=== PATIENT | female | born 1990 ===

== ENCOUNTER 2018-06-27 20:59 | Emergency (ER) | payer SELFPAY ==
[2018-06-27 21:24] VITALS: O2SAT 100
[2018-06-27] MEDS ORDERED: Sodium Chloride 0.9% 1,000 ML IV STA (21:47)
--- NOTE | 2018-06-27 22:33 | ED PDOC ---
HPI: Female Pain Time Seen by Provider: 06/27/18 21:27 Chief Complaint (Nursing): Female Genitourinary Chief Complaint (Provider): Female Genitourinary History Per: Patient History/Exam Limitations: no limitations Onset/Duration Of Symptoms: Days (1x) Current Symptoms Are (Timing): Still Present Severity: Moderate Quality Of Discomfort: Cramping Associated Symptoms: Other (vaginal bleeding, pelvic cramping pain, lower back pain, lightheadedness, fatigue) Additional Complaint(s): 28 year old female with no past medical history presents to the ED for an evaluation of vaginal bleeding and pelvic pain that started today. Patient states that her last known menstrual period was in early March 2018, and he periods are regularly 2x months apart, but 1.5x weeks ago, she took a test which was positive and reports feeling lightheadedness and fatigue. Patient states that today she developed vaginal bleeding and a pelvic cramping today. Patient states that she has used 1x pad today. Patient also reports having lower back pain. Patient denies taking medications for pain, starting care or vitamins as this is her first . PMD: None provided. Abnormal Vaginal Bleeding: Yes Last Menstral Period: early march 2018 : 1 Para: 0 Miscarriage: 0 Past Medical History Reviewed: Historical Data, Nursing Documentation, Vital Signs Vital Signs: Last Vital Signs Temp 98.6 F 06/27/18 21:22 Pulse 78 06/27/18 21:22 Resp 15 06/27/18 21:22 BP 128/79 06/27/18 21:22 Pulse Ox 100 06/27/18 21:22 DEAN Report Viewed: Yes - Medical History PMH: No Chronic Diseases - Surgical History Surgical History: No Surg Hx - Family History Family History: States: No Known Family Hx - Social History Current smoker - smoking cessation education provided: No Alcohol: Social Drugs: Denies - Allergies Allergies/Adverse Reactions: Allergies Allergy/AdvReac Type Severity Reaction Status Date / Time No Known Allergies Allergy Verified 06/27/18 21:21 Review of Systems ROS Statement: Except As Marked, All Systems Reviewed And Found Negative Constitutional: Positive for: Other (fatigue) Cardiovascular: Positive for: Light Headedness Genitourinary Female: Positive for: Vaginal Bleeding, Pelvic Pain (cramping) Musculoskeletal: Positive for: Back Pain (lower) Physical Exam - Reviewed Nursing Documentation Reviewed: Yes Vital Signs Reviewed: Yes - Physical Exam Appears: Positive for: No Acute Distress Head Exam: Positive for: ATRAUMATIC, NORMOCEPHALIC Skin: Positive for: Warm, Dry, Pallor (slight) Eye Exam: Positive for: EOMI, PERRL Cardiovascular/Chest: Positive for: Regular Rate, Rhythm. Negative for: Murmur Gastrointestinal/Abdominal: Positive for: Soft, Tenderness (suprapubic tenderness to palpation). Negative for: Mass, Distended, Guarding, Rebound Back: Positive for: Normal Inspection. Negative for: L CVA Tenderness, R CVA Tenderness Extremity: Positive for: Normal ROM. Negative for: Deformity Lymphatic: Negative for: Adenopathy Neurologic/Psych: Positive for: Alert, Oriented (3x) - Laboratory Results Result Diagrams: 06/27/18 22:15 06/27/18 22:15 - ECG O2 Sat by Pulse Oximetry: 100 (RA) Pulse Ox Interpretation: Normal Medical Decision Making Medical Decision Makin:27 Initial impression: 28 year old female with vaginal bleeding in early . Differential diagnoses include but are not limited to threatened miscarriage or ectopic . Initial plan: * US OB transvaginal * type and screen * BMP * beta hcg * CBC with differential * upreg * udip * IV NS 1,000 ml IV 1,000 mls/hr * tylenol 325 mg tab 975 mg PO * reevaluation 23:49 EXAM: US Obstetrical, Complete <14 weeks CLINICAL HISTORY: Bleeding with TECHNIQUE: Transvaginal and transabdominal imaging of the maternal pelvis and a <14 week gestation with image documentation. COMPARISON: None provided. FINDINGS: GESTATION: An intrauterine gestation is present. [place] rump length measures 5.8 cm compatible with 12.2 weeks estimated ultrasound age. Gestational sac measures a mean sac diameter of 6.0 cm, out of range. heart motion observed at 162 beats per minute. UTERUS: Uterus measures 11.5 x 7.1 x 9.5 cm. CERVIX: Cervix measures 5.2 cm and appears closed. OVARIES: Not visualized bilaterally. FREE FLUID: No free fluid. MISCELLANEOUS: IMPRESSION: Single live intrauterine gestation of approximately 12.2 weeks. heart motion observed as described. See details above. Blood type A+ DW pt findings. Pt reports she does not desire to keep the and has appointment with a clinic on Wednesday to terminate the . Requesting her results for her followup appointment. Results given directly to patient. Scribe Attestation: Documented by Zelda Sinha, acting as a scribe for Jennifer Beard MD, MD. Provider Scribe Attestation: All medical record entries made by the Scribe were at my direction and personally dictated by me. I have reviewed the chart and agree that the record accurately reflects my personal performance of the history, physical exam, medical decision making, and the department course for this patient. I have also personally directed, reviewed, and agree with the discharge instructions and disposition. Disposition - Clinical Impression Clinical Impression: Threatened miscarriage Counseled Patient/Family Regarding: Studies Performed, Diagnosis, Need For Followup - Disposition Disposition: Routine/Home Disposition Time: 00:00 Condition: STABLE Additional Instructions: [facility]. Instructions: Threatened Miscarriage (DC) Print Language: [place]
[2018-06-27 22:42] LABS: BASO % 0.2 % (0.0-2.0); EOS # 0.1 K/uL (0.0-0.7); EOS % 1.3 % (0.0-4.0); HEMOGLOBIN 11.6 g/dL (12.0-16.0); LYMPH % 28.1 % (20.0-40.0); MEAN CELL VOLUME 72.5 fl (81.0-99.0); MEAN CORPUSCULAR HEMOGLOBIN 23.2 pg (27.0-31.0); MONO # 0.5 K/uL (0.0-0.8); MONO % 6.6 % (0.0-10.0); NEUT # 4.6 K/uL (1.8-7.0); NEUT % 63.8 % (50.0-75.0); RBC 4.98 Mil/uL (3.80-5.20); RED CELL DISTRIBUTION WIDTH 22.4 % (11.5-14.5); WHITE BLOOD COUNT 7.2 K/uL (4.8-10.8)
[2018-06-27 22:50] LABS: BLOOD UREA NITROGEN 5 mg/dl (7-17); CALCIUM 9.7 mg/dL (8.4-10.2); GFR NON-AFRICAN AMERICAN > 60
[2018-06-28 01:52] VITALS: BP 124/76; PULSE 81; RESP 16; TEMP 98.2
--- NOTE | 2018-06-28 11:12 | US ---
Date of service: 06/27/2018 PROCEDURE: OB Pelvic Ultrasound HISTORY: EARLY PREG VAG BLEED LMP: 04/02/2018 COMPARISON: None available. FINDINGS: UTERUS: Gestational sac: Single intrauterine gestational sac. Gestational sac diameter measures 6.0 cm. CRL is 5.7 cm corresponding to 12 weeks and 2 days of gestational age. Heart rate: 179 bpm. age (Ultrasound estimated): Twelve weeks and 2 days Paty-gestational hemorrhage: None. Date of delivery (Ultrasound estimated) : 01/07/2019 Uterus measures 11.5 x 7.0 x 9.5 cm. Normal in size and appearance. CERVIX: Measures 5.1 cm. Long and closed. No cervical abnormality seen. RIGHT OVARY: Not visualized. LEFT OVARY: Not visualized. FREE FLUID: None. OTHER FINDINGS: None. IMPRESSION: Single live intrauterine gestation with mean gestational age of 12 weeks and 2 days. The estimated date of delivery by ultrasound is 01/07/2019. The ultrasound dates correspond with the clinical dates. A preliminary report was provided by [facility].
== END 2018-06-28 00:20 | disposition home or self-care (01) ==
LOC: H.ER 20:59
DX: O20.0 Threatened abortion (principal); Z3A.12 12 weeks gestation of pregnancy
CPT/HCPCS: 76815; 80048; 81025; 84702; 85025; 86850; 86900; 99284; J7030